=== PATIENT | female | born 1940 | race Caucasian/White ===

== ENCOUNTER 2019-09-03 07:09 | Day surgery (SDC) | payer OTHER ==
[~2019-09-03 07:09] MED LIST: INTESTINEX1 CA1 PO; TRAM1TAB98 PO
== END 2019-09-03 12:10 | disposition home or self-care (01) ==
LOC: AMB-ENDOS 07:09 → ADM 13:00 → AMB-ENDOS 13:00
DX: D12.8 Benign neoplasm of rectum (principal)